=== PATIENT | male | born 1930 | race Caucasian/White ===

== ENCOUNTER 2017-08-11 18:34 | Inpatient (IN) | payer MEDICARE, BC ==
[2017-08-11] MEDS ORDERED: LEVOFLOXACIN 750MG-D5W PMX 750 MG in DEXTROSE/WATER 1 150ML.BAG IVPB STA (19:13)
--- NOTE | 2017-08-11 19:18 | ED ---
Weakness HPI - General Chief complaint: Weakness Stated complaint: Weakness Time Seen by Provider: 08/11/17 18:47 Source: patient, EMS Mode of arrival: EMS Limitations: no limitations - History of Present Illness Initial comments: This patient is an 87-year-old man brought to be evaluated for generalized weakness and fatigue. It is getting worse over the past few days. The patient does not have any focal weakness. He has been having a decreased appetite and not taking much in way of fluids over the past 1-2 weeks. In addition he has been having a bit of nonproductive cough. The patient did lose his balance and fall landing on the posterior lateral aspect of his left shoulder, having a little bit of pain there. He denies any other injury, including no head or neck pain, chest or back pain or any abdominal injury. MD Complaint: generalized weakness, lack of energy, difficulty walking -: days(s) Location: generalized Severity: moderate Quality: constant Consistency: constant Improves with: none Worsens with: none - Related Data Home Medications Medication Instructions Recorded Confirmed Ascorbic Acid [Vitamin C] 500 mg PO DAILY 08/11/17 08/11/17 Calcium Carbonate/Vitamin D3 1 tab PO DAILY 08/11/17 08/11/17 [Calcium 600-Vit D3 400 Caplet] Cholecalciferol [Vitamin D3] 1,000 unit PO DAILY 08/11/17 08/11/17 Cyanocobalamin (Vitamin B-12) 1,000 mcg PO DAILY 08/11/17 08/11/17 [Vitamin B-12] Finasteride [Proscar] 5 mg PO HS 08/11/17 08/11/17 Fish Oil/Dha/Epa [Fish Oil 1,200 1 cap PO TID 08/11/17 08/11/17 mg Fish Oil] Promethazine/Dextromethorphan 5 ml PO AC-TID 08/11/17 08/11/17 [Promethazine-Dm Syrup] Tamsulosin HCl [Flomax] 0.8 mg PO HS 08/11/17 08/11/17 Valsartan/Hydrochlorothiazide 0.5 tab PO DAILY 08/11/17 08/11/17 [Diovan Hct 320-12.5 mg Tab] Allergies Allergy/AdvReac Type Severity Reaction Status Date / Time Penicillins Allergy Rash/Hives Verified 08/11/17 18:44 Review of Systems ROS Statement: Those systems with pertinent positive or pertinent negative responses have been documented in the HPI. ROS Other: All systems not noted in ROS Statement are negative. Constitutional: Reports: weakness. Denies: fever, chills Eyes: Denies: vision change Respiratory: Reports: cough. Denies: dyspnea, hemoptysis Cardiovascular: Denies: chest pain, orthopnea, edema, syncope Gastrointestinal: Denies: abdominal pain, nausea, vomiting Genitourinary: Denies: dysuria, hematuria Musculoskeletal: Denies: back pain Skin: Denies: rash Neurological: Reports: weakness. Denies: headache, numbness, paresthesias Past Medical History Past Medical History: Hypertension History of Any Multi-Drug Resistant Organisms: None Reported Past Surgical History: No Surgical Hx Reported Past Psychological History: No Psychological Hx Reported Smoking Status: Former smoker Past Alcohol Use History: None Reported, Rare Past Drug Use History: None Reported - Past Family History Father Family Medical History: Unable to Obtain General Exam Limitations: no limitations General appearance: alert, in no apparent distress Head exam: Present: atraumatic, normocephalic Eye exam: Present: normal appearance. Absent: scleral icterus, conjunctival injection ENT exam: Present: mucous membranes dry Neck exam: Present: normal inspection, full ROM Respiratory exam: Present: normal lung sounds bilaterally. Absent: respiratory distress, wheezes, rales, rhonchi, stridor Cardiovascular Exam: Present: regular rate, normal rhythm, normal heart sounds GI/Abdominal exam: Present: soft. Absent: tenderness, guarding, rebound, rigid , mass Extremities exam: Present: normal inspection, normal capillary refill. Absent: pedal edema, calf tenderness Back exam: Absent: CVA tenderness (R), CVA tenderness (L) Neurological exam: Present: alert, CN II-XII intact. Absent: motor sensory deficit Skin exam: Present: warm, dry, intact, normal color. Absent: rash Course Vital Signs 08/11/17 08/11/17 08/11/17 18:42 19:00 19:30 Temperature 97.9 F Pulse Rate 79 66 66 Respiratory 16 16 16 Rate Blood Pressure 139/62 135/60 178/76 O2 Sat by Pulse 97 95 95 Oximetry 08/11/17 08/11/17 08/11/17 20:00 21:44 22:30 Temperature 98 F Pulse Rate 66 71 Respiratory 16 16 Rate Blood Pressure 177/74 139/87 O2 Sat by Pulse 95 96 98 Oximetry EKG Findings - EKG Results: EKG: interpreted by DYLAN, ITZELL, sinus rhythm, normal axis, normal QRS, normal ST/ T, no acute changes - Dysrhythmias: Sinus rhythms and dysrhythmias: sinus rhythm (Rate approximate 72 bpm) Medical Decision Making - Lab Data Result diagrams: 08/11/17 19:54 08/11/17 19:54 Lab Results 08/11/17 08/11/17 08/11/17 Range/Units 19:54 19:54 19:54 WBC 8.4 (3.8-10.6) k/uL RBC 4.60 (4.30-5.90) m/uL Hgb 14.1 (13.0-17.5) gm/dL Hct 43.1 (39.0-53.0) % MCV 93.7 (80.0-100.0) fL MCH 30.6 (25.0-35.0) pg MCHC 32.7 (31.0-37.0) g/dL RDW 13.5 (11.5-15.5) % Plt Count 390 (150-450) k/uL Neutrophils % 75 % Lymphocytes % 17 % Monocytes % 6 % Eosinophils % 1 % Basophils % 1 % Neutrophils # 6.3 (1.3-7.7) k/uL Lymphocytes # 1.4 (1.0-4.8) k/uL Monocytes # 0.5 (0-1.0) k/uL Eosinophils # 0.1 (0-0.7) k/uL Basophils # 0.0 (0-0.2) k/uL PT (9.0-12.0) sec INR (<1.2) APTT (22.0-30.0) sec Sodium 135 L (137-145) mmol/L Potassium 4.5 (3.5-5.1) mmol/L Chloride 103 (98-107) mmol/L Carbon Dioxide 25 (22-30) mmol/L Anion Gap 7 mmol/L BUN 37 H (9-20) mg/dL Creatinine 1.10 (0.66-1.25) mg/dL Est GFR (MDRD) Af Amer >60 (>60 ml/min/1.73 sqM) Est GFR (MDRD) Non-Af >60 (>60 ml/min/1.73 sqM) Glucose 83 (74-99) mg/dL Plasma Lactic Acid Josiah (0.7-2.0) mmol/L Calcium 9.4 (8.4-10.2) mg/dL Magnesium 2.0 (1.6-2.3) mg/dL Total Bilirubin 0.3 (0.2-1.3) mg/dL AST 26 (17-59) U/L ALT 52 (21-72) U/L Alkaline Phosphatase 254 H (38-126) U/L Total Creatine Kinase 65 (55-170) U/L CK-MB (CK-2) 0.4 (0.0-2.4) ng/mL CK-MB (CK-2) Rel Index 0.6 Troponin I <0.012 (0.000-0.034) ng/mL Total Protein 6.0 L (6.3-8.2) g/dL Albumin 3.3 L (3.5-5.0) g/dL 08/11/17 08/11/17 Range/Units 19:54 19:54 WBC (3.8-10.6) k/uL RBC (4.30-5.90) m/uL Hgb (13.0-17.5) gm/dL Hct (39.0-53.0) % MCV (80.0-100.0) fL MCH (25.0-35.0) pg MCHC (31.0-37.0) g/dL RDW (11.5-15.5) % Plt Count (150-450) k/uL Neutrophils % % Lymphocytes % % Monocytes % % Eosinophils % % Basophils % % Neutrophils # (1.3-7.7) k/uL Lymphocytes # (1.0-4.8) k/uL Monocytes # (0-1.0) k/uL Eosinophils # (0-0.7) k/uL Basophils # (0-0.2) k/uL PT 10.6 (9.0-12.0) sec INR 1.0 (<1.2) APTT 25.5 (22.0-30.0) sec Sodium (137-145) mmol/L Potassium (3.5-5.1) mmol/L Chloride (98-107) mmol/L Carbon Dioxide (22-30) mmol/L Anion Gap mmol/L BUN (9-20) mg/dL Creatinine (0.66-1.25) mg/dL Est GFR (MDRD) Af Amer (>60 ml/min/1.73 sqM) Est GFR (MDRD) Non-Af (>60 ml/min/1.73 sqM) Glucose (74-99) mg/dL Plasma Lactic Acid Josiah 1.6 (0.7-2.0) mmol/L Calcium (8.4-10.2) mg/dL Magnesium (1.6-2.3) mg/dL Total Bilirubin (0.2-1.3) mg/dL AST (17-59) U/L ALT (21-72) U/L Alkaline Phosphatase (38-126) U/L Total Creatine Kinase (55-170) U/L CK-MB (CK-2) (0.0-2.4) ng/mL CK-MB (CK-2) Rel Index Troponin I (0.000-0.034) ng/mL Total Protein (6.3-8.2) g/dL Albumin (3.5-5.0) g/dL Disposition Clinical Impression: Dehydration, Pneumonia Disposition: ADMITTED IP TO THIS HOSP Condition: Fair
[2017-08-11 20:14] LABS: Basophils % (A) 1 %; CH 30.6; CHCM 32.7; Eosinophils # (A) 0.1 k/uL (0-0.7); Eosinophils % (A) 1 %; HCT 43.1 % (39.0-53.0); HDW 2.03; HGB 14.1 gm/dL (13.0-17.5); Luc # (Auto) 0.13; Luc % (Auto) 2; Lymphocytes # (A) 1.4 k/uL (1.0-4.8); Lymphocytes % (A) 17 %; MCH 30.6 pg (25.0-35.0); MCHC 32.7 g/dL (31.0-37.0); MCV 93.7 fL (80.0-100.0); Mean Platelet Volume 6.9; Monocytes # (A) 0.5 k/uL (0-1.0); Monocytes % (A) 6 %; Neutrophils # (A) 6.3 k/uL (1.3-7.7); Neutrophils % (A) 75 %; RDW 13.5 % (11.5-15.5); WBC 8.4 k/uL (3.8-10.6); WBC (Perox) 8.54
[2017-08-11 20:23] LABS: ALT 52 U/L (21-72); AST 26 U/L (17-59); Alkaline Phosphatase 254 U/L (38-126); Anion Gap 7 mmol/L; Blood Urea Nitrogen 37 mg/dL (9-20); Calcium 9.4 mg/dL (8.4-10.2); Carbon Dioxide 25 mmol/L (22-30); Chloride 103 mmol/L (98-107); Glucose 83 mg/dL (74-99); Non-African American GFR(MDRD) >60 (>60 ml/min/1.73 sqM); Potassium 4.5 mmol/L (3.5-5.1); Sodium 135 mmol/L (137-145); Total Bilirubin 0.3 mg/dL (0.2-1.3)
[2017-08-11 20:28] LABS: Partial Thromboplastin Time 25.5 sec (22.0-30.0)
[2017-08-11 20:31] LABS: Prothrombin Time 10.6 sec (9.0-12.0)
--- NOTE | 2017-08-11 20:38 | XR ---
EXAMINATION TYPE: XR chest 1V portable DATE OF EXAM: 08/11/2017 COMPARISON: NONE INDICATION: Fever TECHNIQUE: Single frontal view of the chest is obtained. FINDINGS: The heart size is normal. The pulmonary vasculature is normal. Mild infiltrates to the right lower lobe. Correlate for atelectasis or pneumonia. Follow-up can be pe rformed. IMPRESSION: 1. Right lower lobe infiltrate. Atelectasis and pneumonia are within the differential.
[2017-08-11 20:40] LABS: Creatine Kinase 65 U/L (55-170)
[2017-08-11 20:53] LABS: Creatine Kinase MB 0.4 ng/mL (0.0-2.4); Troponin I <0.012 ng/mL (0.000-0.034)
--- NOTE | 2017-08-11 21:37 | XR ---
EXAMINATION TYPE: XR shoulder complete LT DATE OF EXAM: 08/11/2017 COMPARISON: NONE HISTORY: Pain TECHNIQUE: Shoulder examined in 3 views FINDINGS: The humeral head articulates with the glenoid. The acromio-clavicular junction has degenerative change. No acute fractures or dislocations are evident. A follow up study can be performed 7-10 days from acute trauma for continued pain. IMPRESSION: 1. Normal left Shoulder
[2017-08-11] MEDS ORDERED: PNEUMONIA PROTOCOL UTILIZED 1 EACH MISC PO PRN (21:44)
[2017-08-11 22:49] VITALS: BMI 26.6
[2017-08-12 07:17] LABS: Appearance,Urine Clear (Clear); Bilirubin,Urine Negative (Negative); Glucose,Urine (UA) Negative (Negative); Ketones,Urine Negative (Negative); Leukocyte Esterase,Urine Negative (Negative); Nitrite,Urine Negative (Negative); PH, Urine 5.5 (5.0-8.0); Protein,Urine Negative (Negative); UA Billing (MACRO vs. MICRO) CHEM; Urobilinogen,Urine <2.0 mg/dL (<2.0)
[2017-08-12] MEDS ORDERED: VALSARTAN PO SCH (10:30)
[2017-08-12] MEDS ORDERED: HYDROCHLOROTHIAZIDE PO SCH (10:30)
[2017-08-12] MEDS: ENOXAPARIN 40 MG/0.4 ML SYRINGE SQ SCH (11:30)
[2017-08-12] MEDS: VALSARTAN 160 MG TAB PO SCH (11:31)
[2017-08-12] MEDS: HYDROCHLOROTHIAZIDE 25 MG TAB PO SCH (11:32)
[2017-08-12] MEDS ORDERED: RX INFO: IV CONTRAST WAS GIVEN 1 EACH MISC MISCELLANE PRN (12:28)
[2017-08-12] MEDS: ASPIRIN 81 MG PO SCH (13:17)
[2017-08-12] MEDS: ATORVASTATIN 40 MG TAB PO SCH (13:17)
--- NOTE | 2017-08-12 14:49 | HP ---
HISTORY AND PHYSICAL DATE OF ADMISSION: 08/11/17. DATE OF SERVICE: 08/12/17. PRESENT COMPLAINT: Dizzy, fall. HISTORY OF PRESENTING COMPLAINT: This is a pleasant 87-year-old patient of Dr. Hernandez only chronic stable medical conditions are that of hypertension. The patient was in the bathroom when he felt dizzy and he fell down. Never passed out. There was no headache. There was no double vision. There was no focal weakness. Just continued to feel dizzy. There were no palpitations. The patient denied any respiratory symptoms. Denied any urinary symptoms. Just feeling tired. Admitted for the same. In the ER, there was a question about on x-ray hence antibiotics were started. REVIEW OF SYSTEMS: Constitutional: Tired. HEENT none. Respiratory none. Cardiovascular none. Gastrointestinal none. Genitourinary none. Musculoskeletal none. Dermatological and hematologic, lymphatic none. Psychiatry none. Neurological above, no change in speech. PAST MEDICAL HISTORY: Hypertension. PAST SURGICAL HISTORY: None. SOCIAL HISTORY: The patient is an ex-smoker. Alcohol rarely. Lives with his . FAMILY HISTORY: Reviewed, noncontributory to presentation. HOME MEDICATIONS: 1. Diovan 320/12.5 1/2 a tab p.o. daily. 2. Flomax 0.8 mg q.h.s. 3. Promethazine DM 5 mL p.o. t.i.d. 4. Fish oil 200 mg p.o. t.i.d. 5. Proscar 5 mg q.h.s. 6. Vitamin B12 1000 mcg p.o. daily. 7. Vitamin D3 1000 units p.o. daily. 8. Calcium with vitamin D3 1 tab p.o. daily. 9. Vitamin C 500 mg p.o. daily. ALLERGIES: PENICILLIN. PHYSICAL EXAMINATION: Temperature on presentation, 97.9 pulse 79, respiratory rate 16, blood pressure 130/62, pulse ox 97% on room air. General appearance: Average built, lying in bed. Tired- appearing. Eyes pupils equal. Conjunctivae normal. HEENT: Oral cavity normal. Neck: JVD not raised. Mass not palpable. Respiratory effort normal. LUNGS: Clear. Cardiovascular first and second sounds normal. No edema. ABDOMEN: Soft, nontender. Liver and spleen not palpable. Lymphatics: No lymph nodes palpable in neck or axillae. Psychiatry alert and oriented times three. Mood and affect normal. Neurological pupils equal. No facial asymmetry. There is no nystagmus. There is some past- pointing on the left side and a possible dysdiadochokinesia on the left side. INVESTIGATIONS: White count 8.5, hemoglobin 14.1, potassium 4.5, BUN 37, creatinine 1.10. UA negative. Chest x-ray possible right lower lobe infiltrate. EKG normal sinus rhythm. ASSESSMENT: 1. This is a patient presented with some dizziness, some cerebellar sign on the left side suggestive of a posterior circulation stroke. 2. Benign prostatic hypertrophy. 3. Highly doubt pneumonia as patient has had no respiratory symptoms, normal white count. No fever. PLAN: Antibiotics will be discontinued. Patient be started on aspirin, Lipitor. Neuro checks will be done. We will do a CT angio of the brain, carotid Doppler, 2D echo. Neuro checks. Neuro checks will be done. Care was discussed with the patient. Copy to Dr. Hernandez. CHRIS / MARLYS: [id number] /
--- NOTE | 2017-08-12 15:31 | CT ---
EXAMINATION TYPE: CT angio head neck DATE OF EXAM: 08/12/2017 COMPARISON: NONE HISTORY: Generalized weakness CT DLP: 1409.9 mGycm CONTRAST: Performed without and with IV Contrast, patient injected with 65 mL of Omnipaque 350. Combination Contrast CTA cervical carotids and [place] CTA cervical carotids with 3-D recons truction Contrast CTA of the cervical carotids was performed 3-D reconstruction imaging obtained at a separate workstation. Right carotid system: Mild plaque is seen of the right common carotid artery. There is mild plaque a lso noted at the carotid bulb and proximal ICA. No significant diameter reduction. ECA is patent. Right vertebral artery appears unremarkable. Left carotid system: Mild plaque is seen of the left common carotid artery. There is mild plaque als o noted at the carotid bulb and proximal ICS. No significant diameter reduction. ECA is patent. Lef t vertebral artery appears unremarkable. IMPRESSION: 1. No significant diameter reduction to account for the patient's symptoms. CTA [place] with 3-D reconstruction Contrast CTA of the [place] of [place] was performed 3-D reconstruction imaging obtained at a separate workstation. Vertebrobasilar system as well as intracranial portions of the internal carotid arteries and their ma trudi tributaries are patent. I do not see evidence for sizable aneurysm or vascular malformation. Pl ease note MRI provides greater sensitivity and specificity. Visualized brain appears grossly unremar kable. IMPRESSION: 1. No siginificant abnormality.
--- NOTE | 2017-08-12 16:32 | US ---
EXAMINATION TYPE: US carotid duplex BILAT DATE OF EXAM: 08/12/2017 COMPARISON: NONE CLINICAL HISTORY: 87-year-old male confusion, possible stroke. TECHNIQUE: Carotid duplex ultrasound examination. In direct Doppler criteria was utilized. FINDINGS: Aguilar scale images show mild atelectatic change at the bifurcations. Tortuous carotid vessels on the l eft. EXAM MEASUREMENTS: RIGHT: Peak Systolic Velocity (PSV) cm/sec ----- Right CCA: 98.1 ----- Right ICA: 104.0 ----- Right ECA: 118.0 ICA/CCA ratio: 1.1 RIGHT: End Diastole cm/sec ----- Right CCA: 16.9 ----- Right ICA: 10.5 ----- Right ECA: 10.9 LEFT: Peak Systolic Velocity (PSV) cm/sec ----- Left CCA: 80.0 ----- Left ICA: 66.0 ----- Left ECA: 86.3 ICA/CCA ratio: 0.8 LEFT: End Diastole cm/sec ----- Left CCA: 17.2 ----- Left ICA: 22.6 ----- Left ECA: 5.6 VERTEBRALS (direction of flow): Right Vertebral: Antegrade Left Vertebral: Antegrade Rhythm: Normal IMPRESSION: No hemodynamically significant stenosis appreciated in either internal carotid artery. Criteria for Assigning % of Stenosis / Diameter reduction (Estimation based on the indirect measurements of the internal carotid artery velocities (ICA PSV). 1. Normal (no stenosis)=ICA PSV < 125 cm/s: ratio < 2.0: ICA EDV<40 cm/s. 2. Less than 50% stenosis=ICA PSV < 125 cm/s: ratio < 2.0: ICA EDV<40 cm/s. 3. 50 to 69% stenosis=ICA PSV of 125 to 230 cm/s: ration 2.0 ? 4.0: ICA EDV 40-100 cm/s. 4. Greater than 70% stenosis to near occlusion= ICA PSV > 230 cm/s: ratio > 4.0: ICA EDV > 100 cm/s. 5. Near occlusion= ICA PSV velocities may be low or undetectable: variable ratio and ICA EDV. 6. Total occlusion=unable to detect flow.
--- NOTE | 2017-08-12 20:05 | P.CNNES ---
History of Present Illness Consult date: 08/12/17 History of Present Illness: The patient is an 87-year-old man who reports that he tripped on a rug in his bathroom and fell. He denied any prior dizziness or lightheadedness. He denied any injury to self. He states he was able to get up by himself. He denies any headache or back pain but does complain of left shoulder pain. He denied any focal weakness numbness visual loss or speech disturbance. He states he came to the emergency room via EMS. He was admitted to the hospital with dehydration and pneumonia. He had a carotid ultrasound which was negative. He had a CT angiogram which was negative. He states he normally walks with a walker. He states he fell because he tripped on the rug. Review of Systems Constitutional: Denies chills, Denies fever Eyes: denies blurred vision, denies pain Cardiovascular: Denies chest pain, Denies shortness of breath Respiratory: Denies cough Gastrointestinal: Denies abdominal pain, Denies diarrhea, Denies nausea, Denies vomiting Musculoskeletal: Denies myalgias Neurological: Denies numbness, Denies weakness Psychiatric: Denies anxiety, Denies depression Past Medical History Past Medical History: Hypertension History of Any Multi-Drug Resistant Organisms: None Reported Past Surgical History: No Surgical Hx Reported Past Psychological History: No Psychological Hx Reported Smoking Status: Former smoker Past Alcohol Use History: None Reported, Rare Past Drug Use History: None Reported - Past Family History Father Family Medical History: Unable to Obtain Medications and Allergies Home Medications Medication Instructions Recorded Confirmed Type Ascorbic Acid [Vitamin C] 500 mg PO DAILY 08/11/17 08/11/17 History Calcium Carbonate/Vitamin D3 1 tab PO DAILY 08/11/17 08/11/17 History [Calcium 600-Vit D3 400 Caplet] Cholecalciferol [Vitamin D3] 1,000 unit PO DAILY 08/11/17 08/11/17 History Cyanocobalamin (Vitamin B-12) 1,000 mcg PO DAILY 08/11/17 08/11/17 History [Vitamin B-12] Finasteride [Proscar] 5 mg PO HS 08/11/17 08/11/17 History Fish Oil/Dha/Epa [Fish Oil 1,200 1 cap PO TID 08/11/17 08/11/17 History mg Fish Oil] Promethazine/Dextromethorphan 5 ml PO AC-TID 08/11/17 08/11/17 History [Promethazine-Dm Syrup] Tamsulosin HCl [Flomax] 0.8 mg PO HS 08/11/17 08/11/17 History Valsartan/Hydrochlorothiazide 0.5 tab PO DAILY 08/11/17 08/11/17 History [Diovan Hct 320-12.5 mg Tab] Allergies Allergy/AdvReac Type Severity Reaction Status Date / Time Penicillins Allergy Rash/Hives Verified 08/11/17 18:44 Physical Examination - Vital Signs Vital Signs: Vital Signs Temp Pulse Pulse Resp BP BP BP 08/12/17 15:00 98.1 F 74 16 08/12/17 12:53 96 16 108/57 08/12/17 08:00 16 08/12/17 07:00 98.6 F 80 16 112/63 08/11/17 23:00 98.0 F 68 18 163/70 08/11/17 22:30 98 F 71 16 139/87 08/11/17 21:44 08/11/17 20:00 66 16 177/74 BP BP Pulse Ox 08/12/17 15:00 118/60 97 08/12/17 12:53 113/56 140/65 97 08/12/17 08:00 08/12/17 07:00 95 08/11/17 23:00 96 08/11/17 22:30 98 08/11/17 21:44 96 08/11/17 20:00 95 Intake and Output 08/12/17 08/12/17 08/12/17 06:59 14:59 22:59 Other: Voiding Method Urinal Urinal # Voids 1 3 1 Weight 77.111 kg - Constitutional General appearance: cooperative - EENT EENT: PERRL - Respiratory Respiratory: lungs clear - Cardiovascular Cardiovascular: regular rate, normal S1, normal S2 - Neurologic Mental status he was awake alert and oriented there was no a aphasia or dysarthria Cranial nerve examination: PERRL, EOMI, VFF, tongue midline, intact Speech examination: intact Sensorimotor examination: intact Detailed motor examination: grossly full strength in all extremities - Psychiatric Psychiatric: mood/affect appropriate Results - Laboratory Findings CBC and BMP: 08/11/17 19:54 08/11/17 19:54 Abnormal Lab Findings: Abnormal Labs 08/11/17 19:54 Sodium 135 L BUN 37 H Alkaline Phosphatase 254 H Total Protein 6.0 L Albumin 3.3 L Assessment and Plan (1) History of fall Current Visit: Yes Status: Acute SNOMED Code(s): 024195711 (2) Near syncope Current Visit: Yes Status: Acute SNOMED Code(s): 237139982 (3) Dehydration Current Visit: Yes Status: Acute SNOMED Code(s): 90994571 Plan: The patient is an 87-year-old man who has a history of fall in bathroom. He states he tripped on a rug. There was no loss of consciousness. He has no focal deficit. Patient has had a carotid ultrasound which was negative and a CT angiogram which was also negative. He is scheduled to have a echocardiogram. It is possible he may have had a near syncopal event.
[2017-08-12] MEDS ORDERED: LEVOFLOXACIN 750MG-D5W PMX 750 MG in DEXTROSE/WATER 1 150ML.BAG IVPB SCH (21:00)
[2017-08-12] MEDS: FINASTERIDE 5 MG TAB PO SCH (21:35)
[2017-08-12] MEDS: TAMSULOSIN 0.4 MG CAP.ER.24H PO SCH (21:35)
[2017-08-13] MEDS: ENOXAPARIN 40 MG/0.4 ML SYRINGE SQ SCH (07:50)
[2017-08-13] MEDS: HYDROCHLOROTHIAZIDE 25 MG TAB PO SCH (07:50)
[2017-08-13] MEDS: ASPIRIN 81 MG PO SCH (07:50)
[2017-08-13] MEDS: VALSARTAN 160 MG TAB PO SCH (07:51)
[2017-08-13] MEDS: ATORVASTATIN 40 MG TAB PO SCH (07:52)
--- NOTE | 2017-08-13 11:44 | ECHOF ---
Referral Reason:poss stroke MEASUREMENTS -------- HEIGHT: 170.2 cm WEIGHT: 77.1 kg BP: 112/63 RVIDd: 3.4 cm (< 3.3) IVSd: 0.9 cm (0.6 - 1.1) LVIDd: 4.3 cm (3.9 - 5.3) LVPWd: 1.2 cm (0.6 - 1.1) IVSs: 1.0 cm LVIDs: 3.0 cm LVPWs: 1.6 cm LAESV Index (A-L): 20.57 ml/m Ao Diam: 3.4 cm (2.0 - 3.7) AV Cusp: 1.6 cm (1.5 - 2.6) LA Diam: 3.9 cm (2.7 - 3.8) MV E Raghav: 0.47 m/s MV DecT: 348 ms MV A Raghav: 0.98 m/s MV E/A Ratio: 0.48 AR PHT: 383 ms RAP: 5.00 mmHg RVSP: 16.83 mmHg FINDINGS -------- Sinus rhythm. This was a technically adequate study. The left ventricular size is normal. There is mild concentric left ventricular hypertrophy. Overa ll left ventricular systolic function is normal with, an EF between 55 - 60 %. The right ventricle is normal in size and function. Normal LA size by volume 22+/-6 ml/m2. The right atrium is normal in size. Aortic valve is trileaflet and is mildly thickened. There is mild aortic regurgitation. There is no evidence of aortic stenosis. The mitral valve leaflets are mildly thickened. There is trace to mild mitral regurgitation. The MR was evaluated quantitatively, by PISA and/or regurgitant fraction method which measured at {MR ERO }, {MR RV}. Trace tricuspid regurgitation present. Right ventricular systolic pressure is normal at < 35 mmHg. There is no evidence of pulmonary hypertension. The pulmonic valve was not well visualized. The aortic root size is normal. IVC Not well visulized. The pericardium is normal. There is no pericardial effusion. CONCLUSIONS -------- 1. Sinus rhythm. 2. This was a technically adequate study. 3. The left ventricular size is normal. 4. There is mild concentric left ventricular hypertrophy. 5. Overall left ventricular systolic function is normal with, an EF between 55 - 60 %. 6. Normal LA size by volume 22+/-6 ml/m2. 7. Aortic valve is trileaflet and is mildly thickened. 8. There is mild aortic regurgitation. 9. The mitral valve leaflets are mildly thickened. 10. Trace tricuspid regurgitation present. 11. Right ventricular systolic pressure is normal at < 35 mmHg. 12. There is no evidence of pulmonary hypertension. 13. The pulmonic valve was not well visualized. 14. The aortic root size is normal. 15. IVC Not well visulized. 16. There is no pericardial effusion. TEST CENTER MANAGER: Rodolfo Huerta RDCS
--- NOTE | 2017-08-13 18:17 | P.PN ---
Progress Note - Text Progress Note Date: 08/13/17 DATE OF SERVICE: 08/13/2017 PRESENTING COMPLAINT: Dizzy, status post fall HISTORY OF PRESENT ILLNESS: 87-year-old male presented after he became dizzy and fell down at home in his bathroom. Never passed out, no headache no double vision no focal weakness. No palpitations. No respiratory system symptoms. Just feeling tired. Admitted for the same INTERVAL HISTORY: 08/13/2017: Patient seen in follow-up, laying in bed, no distress. Tolerating his diet and about 50%, up with assistance and the use of a walker, CT of the brain negative. REVIEW OF SYSTEMS: Done for constitutional ,cardiovascular, GI, pulmonary with relevant findings as above. CURRENT MEDICATIONS Aspirin, Lipitor, Lovenox, Proscar 5 mg by mouth at bedtime, hydrochlorothiazide 6.25 mg by mouth daily, Levaquin 750 mg by mouth at bedtime , tamsulosin 0.8 mg by mouth at bedtime, Diovan 160 mg by mouth daily. PHYSICAL EXAM VITAL SIGNS: Temperature 98.3, pulse 54, respiratory rate 18, blood pressure 109/55, oxygen saturation 95% on room air. GENERAL APPEARANCE: Lying in bed, not in distress. EYES: Pupils equal. Conjunctiva normal. NECK: JVD not raised. Mass not palpable. RESPIRATORY: Respiratory effort normal. Lungs diminished to auscultation. CARDIOVASCULAR: First and second sounds normal. No edema. ABDOMEN: Soft. Liver and spleen not palpable. No tenderness. No mass palpable. PSYCHIATRY: Alert and oriented x3. Mood and affect normal. NEUROLOGICAL: Pupils equal, no facial asymmetry, no nystagmus INVESTIGATIONS: None new CT of the brain: No significant abnormality. ASSESSMENT: -Presented with dizziness, some cerebellar sign on the left side suggestive of posterior circulation stroke, resolved -Benign prostatic hypertrophy -Viral pneumonia, highly unlikely patient has no respiratory symptoms no white count no fever -Essential hypertension PLAN: Testing performed is negative for any acute process. No further dizziness, may possibly discharge tomorrow if remains stable overnight. Plan of care discussed with the patient at the bedside he is in agreement. We will follow closely. DIRECTOR ACCOUNT MANAGEMENT statement: Patient was seen and examined by nurse practitioner Susan Larose and all elements of the case discussed with attending Dr. Day
--- NOTE | 2017-08-13 20:20 | EEG ---
ELECTROENCEPHALOGRAM REPORT DATE OF EE08/13/2017. REFERRING PHYSICIAN: Dr. Day. CONSULTING INTERPRETING PHYSICIAN: Dr. Jarrod Gaming. ELECTROENCEPHALOGRAPHIC EXAMINATION REPORT: INDICATION FOR EXAMINATION: This patient is a 87-year-old male being evaluated for generalized weakness and syncope. AGE: 87. EEG FINDINGS: A routine 21 channel awake digital EEG recording was accomplished utilizing the 10-20 international system with bipolar and referential montages. The background activity in the most alert resting state consists of a low to medium amplitude, fairly well developed and well sustained 6-7 Hz activity over the posterior head regions. This posterior rhythm attenuates to eye opening. There is a small amount of low amplitude 18-20 Hz beta activity seen maximally over the anterior head regions. Muscle and movement artifact was observed on a few occasions during the tracing. Hyperventilation was not performed. Photic stimulation at flash frequencies of 2-30 Hz produced a minimal occipital driving response. No epileptiform discharges were seen. IMPRESSION: This EEG is mildly abnormal in a diffuse fashion due to slight slowing of the EEG background. The EEG failed to reveal any focal, lateralized, or epileptiform abnormalities. Clinical correlation is recommended. MMODL / IJN: [id number] /
[2017-08-13] MEDS: LEVOFLOXACIN 750 MG TAB PO SCH (21:05)
[2017-08-13] MEDS: FINASTERIDE 5 MG TAB PO SCH (21:05)
[2017-08-13] MEDS: TAMSULOSIN 0.4 MG CAP.ER.24H PO SCH (21:05)
[2017-08-13] MEDS: DOCUSATE 100 MG CAP PO SCH (21:06)
--- NOTE | 2017-08-14 02:23 | PN ---
PROGRESS NOTE DATE OF SERVICE: 08/13/2017 ATTENDING NOTE: Patient was seen and examined by me. I discussed with my nurse practitioner, Ms. Larose. This is a patient admitted with episode of dizziness and I was thinking this could be a cerebellar cause. Per Neurology, this could be syncope. The patient today overall feels better. Tolerating a diet. EXAMINATION: Afebrile. LUNGS: Fair air entry. CARDIOVASCULAR: First and second sounds normal. INVESTIGATIONS: EEG: No seizure activity. CT angio of the brain unremarkable. ASSESSMENT: Possible syncope which could be syncope versus a cerebellar transient ischemic attack. I will go ahead and order an MRI of the brain to look more closely at the posterior circulation, as CT scans are not good at looking at the cerebellum. MMODL / IJN: [id number] /
[2017-08-14] MEDS: ENOXAPARIN 40 MG/0.4 ML SYRINGE SQ SCH (09:07)
[2017-08-14] MEDS: ATORVASTATIN 40 MG TAB PO SCH (09:07)
[2017-08-14] MEDS: DOCUSATE 100 MG CAP PO SCH ×2 (09:07→20:37)
[2017-08-14] MEDS: VALSARTAN 160 MG TAB PO SCH (09:08)
[2017-08-14] MEDS: HYDROCHLOROTHIAZIDE 25 MG TAB PO SCH (09:08)
[2017-08-14] MEDS: ASPIRIN 81 MG PO SCH (09:09)
--- NOTE | 2017-08-14 11:50 | MR ---
EXAMINATION TYPE: MR brain wo con DATE OF EXAM: 08/14/2017 COMPARISON: NONE HISTORY: Possible cerebellar stroke per order. Generalized weakness on admission 2 days ago. TECHNIQUE: Multiplanar, multisequence imaging of the brain and brainstem is performed without IV cont rast. FINDINGS: Diffusion weighted images demonstrate no evidence of a recent infarct or other diffusion abnormality. There is no worrisome extra-axial fluid collection. There is ventricular and sulcal prominence consis tent with diffuse cerebral atrophy. There are scattered foci of T2 hyperintensity seen throughout the white matter bilaterally with some confluent lesion is noted along the superolateral horns. Approxim ately 50 scattered lesions are felt present. Midline structures demonstrate normal morphology. The craniocervical junction appears within normal limits. Normal vascular flow voids are present. There is tiny mucous retention cyst or polyp in the a nterior inferior left maxillary sinus seen best coronal image 4 The visualized sinuses otherwise are clear and the globes are intact. Some increased fluid signal inferior right mastoid air cells is felt present on axial image 5. IMPRESSION: 1. No evidence of a recent infarct with particular attention to the cerebellum. 2. Background of moderate diffuse cerebral atrophy and chronic small vessel ischemic change.
--- NOTE | 2017-08-14 17:51 | P.PN ---
Progress Note - Text Progress Note Date: 08/14/17 DATE OF SERVICE: 08/14/2017 PRESENTING COMPLAINT: Dizzy, status post fall HISTORY OF PRESENT ILLNESS: 87-year-old male presented after he became dizzy and fell down at home in his bathroom. Never passed out, no headache no double vision no focal weakness. No palpitations. No respiratory system symptoms. Just feeling tired. Admitted for the same INTERVAL HISTORY: 08/14/2017: Patient lying in bed, appears comfortable. Tolerating his diet eating about 50% . Up with assistance and the use of a walker. MRI of the brain ordered to rule out possible cerebellar infarct. PT evaluated the patient for possible rehab placement, had some fatigue when attempting stairs complaint of dizziness throughout his treatment. Otherwise patient should be able to return home with his spouse. 08/13/2017: Patient seen in follow-up, laying in bed, no distress. Tolerating his diet and about 50%, up with assistance and the use of a walker, CT of the brain negative. REVIEW OF SYSTEMS: Done for constitutional ,cardiovascular, GI, pulmonary with relevant findings as above. CURRENT MEDICATIONS Aspirin, Lipitor, Lovenox, Proscar 5 mg by mouth at bedtime, hydrochlorothiazide 6.25 mg by mouth daily, Levaquin 750 mg by mouth at bedtime , tamsulosin 0.8 mg by mouth at bedtime, Diovan 160 mg by mouth daily. PHYSICAL EXAM VITAL SIGNS: Temperature 97.7, pulse 68, respiratory rate 18, blood pressure 134/63, oxygen saturation 97% on room air. GENERAL APPEARANCE: Lying in bed, not in distress. EYES: Pupils equal. Conjunctiva normal. NECK: JVD not raised. Mass not palpable. RESPIRATORY: Respiratory effort normal. Lungs diminished to auscultation. CARDIOVASCULAR: First and second sounds normal. No edema. ABDOMEN: Soft. Liver and spleen not palpable. No tenderness. No mass palpable. PSYCHIATRY: Alert and oriented x3. Mood and affect normal. NEUROLOGICAL: Pupils equal, no facial asymmetry, no nystagmus INVESTIGATIONS: Labs: None new Brain MRI: No evidence of recent infarct with particular attention to the cerebellum, moderate diffuse cerebral atrophy and chronic small vessel ischemic changes ASSESSMENT: -Possible syncope which could be syncope versus cerebellar transient ischemic attack -Benign prostatic hypertrophy -Viral pneumonia, highly unlikely patient has no respiratory symptoms no white count no fever -Essential hypertension PLAN: Continue antibiotic therapy, MRI negative for cerebellar infarct. Evaluated by PT had some dizziness, encourage patient to be up out of bed, discharge planning possibly for tomorrow based on patient condition. Plan of care discussed with the patient at the bedside he is in agreement. We will follow closely. ELECTRICAL TESTER statement: Patient was seen and examined by nurse practitioner Susan Larose and all elements of the case discussed with attending Dr. Day
[2017-08-14] MEDS: FINASTERIDE 5 MG TAB PO SCH (20:37)
[2017-08-14] MEDS: LEVOFLOXACIN 750 MG TAB PO SCH (20:37)
[2017-08-14] MEDS: TAMSULOSIN 0.4 MG CAP.ER.24H PO SCH (20:37)
--- NOTE | 2017-08-14 22:45 | PN ---
PROGRESS NOTE DATE OF SERVICE: 08/14/2017. ATTENDING NOTE: Patient was seen and examined by me. I discussed with nurse practitioner, Ms. Larose. The patient had presented with fall. There was a question if this was a cerebral infarct, for which I ordered an MRI of the brain that has come back negative for the same. PT/OT did see the patient. They felt patient is okay to go home. Patient has been using a walker, still feeling bit tired. The patient may have a viral pneumonia. Symptoms are minimal. The patient has been given a trial of antibiotics. He has improved. EXAMINATION: Afebrile, pulse 80, respirations 16, blood pressure 103/50. LUNGS: Fair air entry. CARDIOVASCULAR: First and second sounds normal. Answering questions. RESULTS: As noted. ASSESSMENT: 1. Possible viral pneumonia. 2. Syncope. Cerebral transient ischemic attack is in the differential. PLAN: neonatal social worker is involved, looking at discharge planning in next 24 hours. Will likely go ahead and stop the patient's antibiotic. MMODL / IJN: [id number] /
[2017-08-15 07:35] LABS: Basophils % (A) 0 %; CH 31.6; CHCM 33.4; Eosinophils # (A) 0.1 k/uL (0-0.7); Eosinophils % (A) 2 %; HCT 34.2 % (39.0-53.0); HDW 2.16; HGB 11.2 gm/dL (13.0-17.5); Luc # (Auto) 0.17; Luc % (Auto) 2; Lymphocytes # (A) 1.6 k/uL (1.0-4.8); Lymphocytes % (A) 22 %; MCH 31.1 pg (25.0-35.0); MCHC 32.7 g/dL (31.0-37.0); MCV 95.2 fL (80.0-100.0); Mean Platelet Volume 6.8; Monocytes # (A) 0.5 k/uL (0-1.0); Monocytes % (A) 7 %; Neutrophils # (A) 4.9 k/uL (1.3-7.7); Neutrophils % (A) 67 %; RBC 3.59 m/uL (4.30-5.90); RDW 12.2 % (11.5-15.5); WBC 7.3 k/uL (3.8-10.6); WBC (Perox) 7.54
[2017-08-15 07:48] LABS: Anion Gap 8 mmol/L; Blood Urea Nitrogen 45 mg/dL (9-20); Calcium 8.5 mg/dL (8.4-10.2); Carbon Dioxide 20 mmol/L (22-30); Chloride 102 mmol/L (98-107); Glucose 91 mg/dL (74-99); Non-African American GFR(MDRD) 52 (>60 ml/min/1.73 sqM); Potassium 4.5 mmol/L (3.5-5.1); Sodium 130 mmol/L (137-145)
[2017-08-15 08:29] VITALS: RESP 18
[2017-08-15] MEDS: ASPIRIN 81 MG PO SCH (08:48)
[2017-08-15] MEDS: ATORVASTATIN 40 MG TAB PO SCH (08:49)
[2017-08-15] MEDS: HYDROCHLOROTHIAZIDE 25 MG TAB PO SCH (08:49)
[2017-08-15] MEDS: ENOXAPARIN 40 MG/0.4 ML SYRINGE SQ SCH (08:49)
[2017-08-15] MEDS: DOCUSATE 100 MG CAP PO SCH (08:49)
[2017-08-15] MEDS: VALSARTAN 160 MG TAB PO SCH (08:50)
[2017-08-15] MEDS ORDERED: CEFUROXIME 250 MG TAB PO SCH (09:00)
[2017-08-15 15:54] VITALS: BP 104/64; PULSE 66; TEMP 98.8
--- NOTE | 2017-08-15 17:43 | DS ---
DISCHARGE SUMMARY DATE OF ADMISSION: 08/11/17. DATE OF DISCHARGE: 08/15/17. FINAL DIAGNOSES: 1. Syncope, could be cerebellar transient ischemic attack. 2. Benign prostatic hypertrophy. 3. Likely viral pneumonia. 4. Essential hypertension. 5. Anorexia, probably from viral pneumonia. 6. Divarication of recti. HOSPITAL COURSE: This patient presented episode of falling down. Had some subtle cerebellar signs when he first presented. The patient's CT angio of the brain, carotid Doppler, 2D echocardiogram, EEG, brain MRI showed some chronic changes. Patient seen with Dr. Quintin Gaming from neurology. The patient's appetite is not very good. The patient is felt to have also underlying viral pneumonia. Care was discussed in detail with the patient and at the bedside. Questions were answered. Seen by PT/OT and okayed for home. The patient encouraged to try to remain active. DISCHARGE MEDICATIONS: Vitamin C 500 mg p.o. daily, calcium 600 mg and vitamin D3 1 tab p.o. daily, vitamin D3 1000 units p.o. daily, vitamin B12 1000 mcg p.o. daily, Proscar 5 mg p.o. q.h.s., fish oil 200 mg p.o. t.i.d., promethazine DM 5 cc t.i.d., Flomax 0.8 mg q.h.s., aspirin 81 mg p.o. daily, Lipitor 40 mg p.o. daily, Prinivil 2.5 mg p.o. daily. Additional note: The patient blood pressure being tending to run on the lower side. Hence, Diovan hydrochlorothiazide was cut back. If need be even the small dose of THUAN inhibitor can be held. The patient's last blood pressure was 104/64. That is with the blood pressure medication. Care was discussed in detail with the patient and . EXAM: Lungs slightly decreased breath sounds. Cardiovascular first and second sounds normal. Psych AO x3. Also patient also has got divarication of recti. Followup with Dr. Gaming in 2 weeks, Dr. Hernandez on August 20 7. Discharge planning and discussion more than 35 minutes. MMODL / IJN: [id number] /
== END 2017-08-15 17:45 | disposition home or self-care (01) | DRG 69 ==
LOC: EC 18:34 → 5MS5E 21:44
PROVIDERS: ADMIT Hospitalist; ATTEND Hospitalist
DX: G45.9 Transient cerebral ischemic attack, unspecified (principal); J12.9 Viral pneumonia, unspecified; E86.0 Dehydration; N40.0 Benign prostatic hyperplasia without lower urinary tract symptoms; I10 Essential (primary) hypertension; Z79.899 Other long term (current) drug therapy; Z87.891 Personal history of nicotine dependence; Z88.0 Allergy status to penicillin; W01.0XXA Fall on same level from slipping, tripping and stumbling without subsequent striking against object, initial encounter
CPT/HCPCS: 36415; 70496; 70498; 70551; 71010; 80048; 80053; 81003; 82550; 82553; 83605; 83735; 84484; 85025; 85610; 85730; 87040; 87086; 93005; 93306; 93880; 95819; 96365; 96366; 99285